=== PATIENT | male | born 1975 | race Caucasian/White ===

== ENCOUNTER 2016-10-02 16:04 | Emergency (ER) | payer BC, SELFPAY ==
[~2016-10-02] VITALS: Ht 185.4 cm; Wt 68.0 kg
[2016-10-02] MEDS ORDERED: IBUP600T26 PO (16:16)
[2016-10-02] MEDS ORDERED: CYCL10TA PO (16:44)
[2016-10-02] MEDS ORDERED: PRED20TA PO (16:44)
[2016-10-02] MEDS ORDERED: methylPREDNISolone INJ 125 MG/2 ML VIAL (J2930) IM ONE (16:45)
[2016-10-02 16:47] VITALS: BP 118/84
== END 2016-10-02 17:20 | disposition home or self-care (01) ==
LOC: M ED 17:17
DX: M54.31 Sciatica, right side (principal)
CPT/HCPCS: 96372; 99282; J2930

== ENCOUNTER → 2017-10-28 | Outpatient (CLI) | payer MEDICAID, OTHER | LOC: M ADAMS 11:31 | DX: M47.816 Spondylosis without myelopathy or radiculopathy, lumbar region (principal); M43.17 Spondylolisthesis, lumbosacral region; M51.36 Other intervertebral disc degeneration, lumbar region | CPT/HCPCS: 72110 ==

== ENCOUNTER → 2017-10-31 | Outpatient (CLI) | payer BC, MEDICAID | LOC: M ADAMS 09:42 | DX: M54.31 Sciatica, right side (principal) | CPT/HCPCS: 72100 ==

== ENCOUNTER 2018-05-27 08:08 | Emergency (ER) | payer BC, OTHER ==
[~2018-05-27] VITALS: Ht 185.4 cm; Wt 70.5 kg
[~2018-05-27 08:08] MED LIST: CYCL10TA PO; IBUP-1022 PO; PRED20TA PO
[2018-05-27 09:19] VITALS: BP 98/57
== END 2018-05-27 09:49 | disposition home or self-care (01) ==
LOC: M ED 08:08
DX: G56.32 Lesion of radial nerve, left upper limb (principal); F17.210 Nicotine dependence, cigarettes, uncomplicated

== ENCOUNTER → 2018-10-21 | Outpatient (CLI) | payer OTHER ==
[2018-10-21 19:53] LABS: BASO # 0.1 10^3/uL (0.0-0.2); BASO % 0.6 % (0.0-1.0); EOS # 0.1 10^3/uL (0.0-0.50); EOS % 0.8 % (0.0-3.0); HEMATOCRIT 44.4 % (42.0-52.0); HEMOGLOBIN 14.9 g/dl (13.5-17.5); LYMPH # 2.1 10^3/uL (1.5-4.5); LYMPH % 20.5 % (24.0-44.0); MEAN CORPUSCULAR HEMOGLOBIN 29.9 pg (27.0-33.0); MEAN CORPUSCULAR HGB CONC 33.6 g/dl (32.0-36.5); MEAN CORPUSCULAR VOLUME 89.2 fl (80.0-96.0); MONO # 0.6 10^3/uL (0.0-0.8); MONO % 5.5 % (0.0-5.0); NEUTROPHILS # 7.4 10^3/uL (1.8-7.7); NEUTROPHILS % 72.3 % (36.0-66.0); PLATELET COUNT, AUTOMATED 322 10^3/uL (150-450); RED BLOOD COUNT 4.98 10^6/uL (4.30-6.10); WHITE BLOOD COUNT 10.2 10^3/uL (4.0-10.0)
[2018-10-21 19:57] LABS: BLOOD UREA NITROGEN 14 MG/DL (7-18); CALCIUM LEVEL 9.4 MG/DL (8.5-10.1); CARBON DIOXIDE LEVEL 33 MEQ/L (21-32); CHLORIDE LEVEL 102 MEQ/L (98-107); CREATININE FOR GFR 1.06 MG/DL (0.70-1.30); GLOMERULAR FILTRATION RATE > 60.0 (>60); GLUCOSE, FASTING 72 MG/DL (70-100); POTASSIUM SERUM 4.9 MEQ/L (3.5-5.1); SODIUM LEVEL 138 MEQ/L (136-145)
== END ==
LOC: M LABDRWAD 16:11
PROVIDERS: ATTEND Physician Assistant Medical
DX: M54.5 Low back pain (principal)

== ENCOUNTER → 2018-10-21 | Outpatient (REF) | payer OTHER | LOC: M LAB REF 19:11 | PROVIDERS: ATTEND Physician Assistant Medical | DX: M54.5 Low back pain (principal) ==

== ENCOUNTER → 2021-09-26 | Outpatient (CLI) | payer OTHER ==
[~2021-09-26] MED LIST changes: +CYCL-707 PO; -CYCL10TA PO
== END ==
LOC: M PLAIMG 15:44
PROVIDERS: ATTEND Podiatrist Foot & Ankle Surgery
DX: D21.21 Benign neoplasm of connective and other soft tissue of right lower limb, including hip (principal)

== ENCOUNTER → 2021-10-27 | Outpatient (CLI) | payer OTHER | LOC: M PLAIMG 08:30 | PROVIDERS: ATTEND Physician Assistant | DX: R12 Heartburn (principal); R13.13 Dysphagia, pharyngeal phase; F17.210 Nicotine dependence, cigarettes, uncomplicated; J31.2 Chronic pharyngitis ==

== ENCOUNTER → 2022-05-08 | Outpatient (REF) | payer OTHER, MEDICAID, BC ==
[2022-05-08 17:53] LABS: ALBUMIN 3.8 G/DL (3.2-5.2); BILIRUBIN,DIRECT 0.1 MG/DL (<0.4); BILIRUBIN,TOTAL 0.4 MG/DL (0.3-1.2); CHOLESTEROL RISK RATIO 3.67 (<5); HDL CHOLESTEROL 42.5 MG/DL (>40); LDL CHOLESTEROL 96.3 MG/DL (<100); TOTAL PROTEIN 6.7 G/DL (5.7-8.2)
== END ==
LOC: M LAB REF 16:18
PROVIDERS: ATTEND Physician Assistant
DX: E78.5 Hyperlipidemia, unspecified (principal)

== ENCOUNTER → 2022-09-27 | Outpatient (CLI) | payer OTHER, MEDICAID, BC ==
[~2022-09-27] MED LIST changes: +PERC5TAB12 PO
== END ==
LOC: M WUC 15:23
PROVIDERS: ATTEND Physician Assistant
DX: R10.32 Left lower quadrant pain (principal)

== ENCOUNTER → 2024-03-16 | Outpatient (REF) | payer OTHER | LOC: M LAB REF 17:42 | PROVIDERS: ATTEND Physician Assistant | DX: D22.9 Melanocytic nevi, unspecified (principal); L98.8 Other specified disorders of the skin and subcutaneous tissue ==

== ENCOUNTER 2024-10-20 19:12 | Emergency (ER) | payer MEDICAID, OTHER, SELFPAY ==
[~2024-10-20] VITALS: Ht 185.4 cm; Wt 68.2 kg
[2024-10-20 23:11] VITALS: O2SAT 98
[2024-10-20] MEDS ORDERED: DOXY-441 PO (23:44)
[2024-10-20] MEDS ORDERED: PRED10TA2 PO (23:44)
[2024-10-20 23:54] VITALS: BP 139/85; TEMP 98.6
[2024-10-26 01:12] LABS: Anaplasma phagocytophilum NOT DETECTED (NOT DETECT); Babesia microti NOT DETECTED (NOT DETECT)
[2024-10-26 01:52] LABS: BORRELIA SPECIES DNA NOT DETECTED (NOT DETECT); Ehrlichia chaffeensis NOT DETECTED
== END 2024-10-20 23:55 | disposition home or self-care (01) ==
LOC: M ED 19:12
DX: S80.861A Insect bite (nonvenomous), right lower leg, initial encounter (principal); Z11.8 Encounter for screening for other infectious and parasitic diseases; Z79.52 Long term (current) use of systemic steroids; Z79.899 Other long term (current) drug therapy; Y93.89 Activity, other specified; Y92.9 Unspecified place or not applicable